=== PATIENT | male | born 1980 | race Caucasian/White ===

== ENCOUNTER 2023-01-13 11:07 | Outpatient (OUT) | payer OTHER, SELFPAY ==
[2023-01-13 12:05] LABS: Basophils Absolute Auto 0.1 10^3/uL (0.0-0.1); Basophils Percent Auto 0.7 % (0.2-2.0); Eosinophils Absolute Auto 0.4 10^3/uL (0.0-0.7); Eosinophils Percent Auto 4.6 % (0.9-7.0); Hematocrit 44.1 % (42.0-54.0); Hemoglobin 14.7 g/dL (14.0-18.0); Immature Granulocytes Abs Auto 0.02 10^3/uL (0.00-0.03); Immature Granulocytes Pct Auto 0.3 % (0.0-0.5); Lymphocytes Absolute Auto 1.7 10^3/uL (1.2-3.8); Lymphocytes Percent Auto 22.2 % (20.5-60.0); Mean Corpuscular HGB Conc 33.3 g/dL (29.9-35.2); Mean Corpuscular Hemoglobin 29.1 pg (25.9-34.0); Mean Corpuscular Volume 87.2 fL (80.0-94.0); Mean Platelet Volume 9.7 fL (9.5-13.5); Monocytes Absolute Auto 0.6 10^3/uL (0.3-0.8); Monocytes Percent Auto 8.4 % (1.7-12.0); Neutrophils Absolute Auto 4.8 10^3/uL (1.4-6.5); Neutrophils Percent Auto 63.8 % (43.0-75.0); Platelet Count 376 10^3/uL (150-450); Red Blood Count 5.06 10^6/uL (4.70-6.10); Red Cell Distribution Width 12.2 % (11.0-15.0); White Blood Count 7.6 10^3/uL (4.0-11.0)
[2023-01-13 12:11] LABS: Estimated Average Glucose 100 mg/dL; Glycohemoglobin A1C 5.1 % (4.5-6.2)
[2023-01-13 12:20] LABS: Alanine Aminotransferase 47 U/L (16-63); Albumin Globulin Ratio 1.2; Albumin Level 4.1 g/dL (3.4-5.0); Alkaline Phosphatase 68 U/L (46-116); Anion Gap 10.6; Aspartate Amino Transferase 25 U/L (15-37); BUN Creatinine Ratio 13.5; Bilirubin Direct 0.1 mg/dL (0.0-0.2); Bilirubin Total 0.5 mg/dL (0.2-1.0); Calcium 8.7 mg/dL (8.5-10.1); Carbon Dioxide 29.5 mmol/L (21.0-32.0); Chloride 102 mmol/L (98-107); Chol HDL Ratio 5.1; Cholesterol 225 mg/dL (<=200); Estimated GFR (African America >60 (>=60); Estimated GFR (Non-African Ame >60 (>=60); Globulin 3.5 g/dL; Glucose 92 mg/dL (74-106); HDL Cholesterol 44 mg/dL (40-60); Potassium 4.1 mmol/L (3.5-5.1); Sodium 138 mmol/L (136-145); Thyroid Stimulating Hormone 1.435 uIU/mL (0.358-3.740); Total Protein 7.6 g/dL (6.4-8.2); Triglycerides 111 mg/dL (<=150); VLDL CHOLESTEROL 22.2 mg/dL
[2023-01-13 12:55] LABS: Prostate Specific Antigen Scrn 0.61 ng/mL (<=4.00)
== END 2023-01-13 11:08 | disposition home or self-care (01) ==
LOC: LAB 11:09
PROVIDERS: PCP Family Medicine; Visit Provider Family Medicine
DX: Z00.00 Encounter for general adult medical examination without abnormal findings (principal)
CPT/HCPCS: 36415; 80048; 80061; 80076; 83036; 84443; 85025; G0103

== ENCOUNTER 2024-01-15 10:03 | Outpatient (OUT) | payer OTHER, SELFPAY ==
[2024-01-15 10:54] LABS: Basophils Absolute Auto 0.1 10^3/uL (0.0-0.1); Basophils Percent Auto 0.9 % (0.2-2.0); Eosinophils Absolute Auto 0.2 10^3/uL (0.0-0.7); Hematocrit 45.5 % (42.0-54.0); Immature Granulocytes Abs Auto 0.02 10^3/uL (0.00-0.03); Immature Granulocytes Pct Auto 0.3 % (0.0-0.5); Lymphocytes Absolute Auto 1.4 10^3/uL (1.2-3.8); Lymphocytes Percent Auto 20.6 % (20.5-60.0); Mean Corpuscular Hemoglobin 29.4 pg (25.9-34.0); Mean Platelet Volume 9.9 fL (9.5-13.5); Monocytes Absolute Auto 0.6 10^3/uL (0.3-0.8); Monocytes Percent Auto 8.8 % (1.7-12.0); Neutrophils Absolute Auto 4.4 10^3/uL (1.4-6.5); Neutrophils Percent Auto 66.4 % (43.0-75.0); Platelet Count 341 10^3/uL (150-450); Red Blood Count 5.11 10^6/uL (4.70-6.10); Red Cell Distribution Width 11.9 % (11.0-15.0); White Blood Count 6.6 10^3/uL (4.0-11.0)
[2024-01-15 11:17] LABS: Estimated Average Glucose 100 mg/dL; Glycohemoglobin A1C 5.1 % (4.5-6.2)
[2024-01-15 11:35] LABS: Alanine Aminotransferase 49 U/L (16-63); Albumin Globulin Ratio 1.1; Alkaline Phosphatase 75 U/L (46-116); Anion Gap 10.2; Aspartate Amino Transferase 29 U/L (15-37); Bilirubin Direct 0.1 mg/dL (0.0-0.2); Bilirubin Total 0.5 mg/dL (0.2-1.0); Calcium 9.3 mg/dL (8.5-10.1); Carbon Dioxide 30.8 mmol/L (21.0-32.0); Chloride 102 mmol/L (98-107); Chol HDL Ratio 4.9; Cholesterol 220 mg/dL (<=200); Estimated GFR (African America >60 (>=60); Estimated GFR (Non-African Ame >60 (>=60); Globulin 3.5 g/dL; Glucose 96 mg/dL (74-106); HDL Cholesterol 45 mg/dL (40-60); Sodium 139 mmol/L (136-145); Thyroid Stimulating Hormone 1.574 uIU/mL (0.358-3.740); Total Protein 7.5 g/dL (6.4-8.2); Triglycerides 91 mg/dL (<=150); VLDL CHOLESTEROL 18.2 mg/dL
[2024-01-15 11:36] LABS: Prostate Specific Antigen Scrn 0.58 ng/mL (<=4.00)
== END 2024-01-15 10:04 | disposition home or self-care (01) ==
LOC: LAB 10:04
PROVIDERS: PCP Family Medicine; Visit Provider Family Medicine
DX: Z00.00 Encounter for general adult medical examination without abnormal findings (principal)
CPT/HCPCS: 36415; 80048; 80061; 80076; 83036; 84443; 85025; G0103

== ENCOUNTER 2025-01-06 11:58 | Outpatient (OUT) | payer OTHER, SELFPAY ==
--- OUTSIDE RECORDS SUMMARY | 2025-01-06 12:17 | XMS_ITS | CCD ---
Author Organization [facility] Care Team Providers Care After School Caregiver Name Role Phone DR CRISTIAN MARTINES Attending Unavailable CONRAD, DR CRISTIAN Brar Consulting Unavailable DR CRISTIAN MARTINES Primary Care Unavailable CONRAD, DR CRISTIAN Brar Admitting Unavailable Cristian Martines MD Primary Care Provider [phone] Problems Active Problems Problem Classification Problem Date Documented Da te Episodic/Chronic Disorders of lipid metabolism (2 sources) Dyslipidemia; Translations: [Hyperlipidemia, unspecified] Onset: 01-15-2024 01-15-2024 Chronic Other skin disorders (2 sources) Skin tag; Translations: [Other hypertrophic disorders of the skin] Onset: 01-06-2025 01-06-2025 Episodic Other upper respiratory disease (2 sources) Allergic rhinitis due to pollen; Translations: [Allergic rhinitis due to pollen] Onset: 01-15-2024 01-15-2024 Chronic Past or Other Problems Problem Classification Problem Date Documented Da te Episodic/Chronic Other nutritional; endocrine; and metabolic disorders (2 sources) Overweight; Translations: [Overweight] Onset: 01-15-2024 01-15-2024 Episodic Results Test Name Value Interpretation Reference Range Facil ity CBC AUTO DIFFon 02-06-2022 BASO # 0.1 103/ul Normal 0.0-0.1 [facility] Comment on above: Performed By: #### C BC #### [facility] [address] [address] [address] Andressa Krishnan Basophils/100 WBC (Bld) 0.7 % Normal 0.2-2.0 [facility] Comment on above: Performed By: #### C BC #### [facility] [address] [address] [address] Andressa Krishnan EO # 0.3 103/ul Normal 0.0-0.7 [facility] Comment on above: Performed By: #### C BC #### [facility] [address] [place] [address] Dr. Andressa Krishnan Eosinophils/100 WBC (Bld) 4.0 % Normal 0.9-7.0 [facility] Comment on above: Performed By: #### C BC #### [facility] [address] [place] [address] Dr. Andressa Krishnan Erythrocyte distribution width (RBC) [Ratio] 11.9 % Normal 11.0-15.0 [facility] Comment on above: Performed By: #### C BC #### [facility] [address] [place] [address] Dr. Andressa Krishnan Hematocrit (Bld) [Volume fraction] 45.3 % Normal 42.0-54.0 [facility] Comment on above: Performed By: #### C BC #### [facility] [address] [place] [address] Dr. Andressa Krishnan Hemoglobin (Bld) [Mass/Vol] 14.7 g/dL Normal 14.0-18.0 [facility] Comment on above: Performed By: #### C BC #### [facility] [address] [place] [address] Dr. Andressa Krishnan IG # 0.03 10e3/ul Normal 0.00-0.03 [facility] Comment on above: Performed By: #### C BC #### [facility] [address] [place] [address] Dr. Andressa Krishnan IG % 0.4 % Normal 0.0-0.5 [facility] Comment on above: Performed By: #### C BC #### [facility] [address] [place] [address] Dr. Andressa Krishnan LYMPH # 1.6 103/ul Normal 1.2-3.8 [facility] Comment on above: Performed By: #### C BC #### [facility] [address] [place] [address] Dr. Andressa Krishnan Lymphocytes/100 WBC (Bld) 21.1 % Normal 20.5-60.0 [facility] Comment on above: Performed By: #### C BC #### [facility] [address] [place] [address] Dr. Andressa Krishnan MANUAL DIFF REQ NO Normal [facility] Comment on above: Performed By: #### C BC #### [facility] [address] [place] [address] Dr. Andressa Krishnan MCH (RBC) [Entitic mass] 29.1 pg Normal 25.9-34.0 [facility] Comment on above: Performed By: #### C BC #### [facility] [address] [place] [address] Dr. Andressa Krishnan MCHC (RBC) [Mass/Vol] 32.5 g/dL Normal 29.9-35.2 [facility] Comment on above: Performed By: #### C BC #### [facility] [address] [place] [address] Dr. Andressa Krishnan MCV (RBC) [Entitic vol] 89.7 fL Normal 80.0-94.0 [facility] Comment on above: Performed By: #### C BC #### [facility] [address] [place] [address] Dr. Andressa Krishnan MONO # 0.6 103/ul Normal 0.3-0.8 [facility] Comment on above: Performed By: #### C BC #### [facility] [address] [place] [address] Dr. Andressa Krishnan Monocytes/100 WBC (Bld) 8.1 % Normal 1.7-12.0 [facility] Comment on above: Performed By: #### C BC #### [facility] [address] [place] [address] Dr. Andressa Krishnan NEUT # 4.9 103/ul Normal 1.4-6.5 [facility] Comment on above: Performed By: #### C BC #### [facility] [address] [place] [address] Dr. Andressa Krishnan Neutrophils/100 WBC (Bld) 65.7 % Normal 43.0-75.0 [facility] Comment on above: Performed By: #### C BC #### [facility] [address] [address] [address] Andressa Krishnan Platelet mean volume (Bld) [Entitic vol] 9.8 fL Normal 9.5-13.5 [facility] Comment on above: Performed By: #### C BC #### [facility] [address] [address] [address] Andressa Krishnan PLT 365 103/ul Normal 150-450 [facility] Comment on above: Performed By: #### C BC #### [facility] [address] [address] [address] Andressa Krishnan RBC 5.05 106/ul Normal 4.70-6.10 [facility] Comment on above: Performed By: #### C BC #### [facility] [address] [place] [address] Dr. Andressa Krishnan WBC 7.5 103/ul Normal 4.0-11.0 [facility] Comment on above: Performed By: #### C BC #### [facility] [address] [place] [address] Dr. Andressa Krishnan GLYCOHEMOGLOBIN A1Con 2021 ADA RECOMMENDATION SEE BELOW Normal [facility] Comment on above: Result Comment: ADA RECOMMENDED LIMIT 4.0 - 6.0 ADA THERAPEUTIC TARGET < 7.0 ACTION SUGGESTED > 7.0 Performed By: #### A 1C #### [facility] [address] [place] [address] Dr. Andressa Krishnan Glucose [Mass/Vol] 108 mg/dL Normal [facility] Comment on above: Performed By: #### A 1C #### [facility] [address] [place] [address] Dr. Andressa Krishnan HbA1c (Bld) [Mass fraction] 5.4 % Normal 4.5-6.2 [facility] Comment on above: Performed By: #### A 1C #### [facility] [address] [place] [address] Dr. Andressa Krishnan LIPID PROFILEon 02-06-2022 CHOL-HDL RATIO NORM SEE BELOW Normal [facility] Comment on above: Result Comment: 3.3 - 4.4 LOW RISK 4.4 - 7.1 AVERAGE RISK 7.1 - 11.0 MODERATE RISK >11.0 HIGH RISK Performed By: #### T SH, LIVER, BMP, LIPID #### [facility] [address] [address] [address] Andressa Krishnan Cholesterol [Mass/Vol] 237 mg/dL Critically high <=200 [facility] Comment on above: Performed By: #### T SH, LIVER, BMP, LIPID #### [facility] [address] [address] [address] Andressa Krishnan Cholesterol in HDL [Mass/Vol] 44 mg/dL Normal 40-60 [facility] Comment on above: Performed By: #### T SH, LIVER, BMP, LIPID #### [facility] [address] [address] [address] Andressa Krishnan Cholesterol in LDL [Mass/Vol] 176.2 mg/dL Normal [facility] Comment on above: Performed By: #### T SH, LIVER, BMP, LIPID #### [facility] [address] [address] [address] Andressa Krishnan Cholesterol.total/Cho lesterol in HDL [Mass ratio] 5.4 {ratio} Normal [facility] Comment on above: Performed By: #### T SH, LIVER, BMP, LIPID #### [facility] [address] [place] [address] Dr. Andressa Krishnan HDL NORMAL > or = 60 mg/dl - LOW CARDIOVASCULAR RISK <40 mg/dl - HIGH CARDIOVASCULAR RISK Normal [facility] Comment on above: Performed By: #### T SH, LIVER, BMP, LIPID #### [facility] [address] [address] [address] Andressa Krishnan LDL CALC NORMAL SEE BELOW Normal [facility] Comment on above: Result Comment: <100 mg/dl OPTIMAL 100 - 129 mg/dl NEAR OR ABOVE OPTIMAL 130 - 159 mg/dl BORDERLINE HIGH 160 - 189 mg/dl HIGH >190 mg/dl VERY HIGH Performed By: #### T SH, LIVER, BMP, LIPID #### [facility] [address] [address] [address] Andressa Krishnan Triglyceride [Mass/Vol] 84 mg/dL Normal <=150 [facility] Comment on above: Performed By: #### T SH, LIVER, BMP, LIPID #### [facility] [address] [address] [address] Andressa Krishnan VLDL CALC 16.8 mg/dL Normal [facility] Comment on above: Performed By: #### T SH, LIVER, BMP, LIPID #### [facility] [address] [address] [address] Andressa Krishnan LIVER PROFILEon 02-06-2022 Albumin [Mass/Vol] 4.2 g/dL Normal 3.4-5.0 [facility] Comment on above: Performed By: #### T SH, LIVER, BMP, LIPID #### [facility] [address] [place] [address] Dr. Andressa Krishnan Albumin/Globulin [Mass ratio] 1.1 {ratio} Normal [facility] Comment on above: Performed By: #### T SH, LIVER, BMP, LIPID #### [facility] [address] [address] [address] Andressa Krishnan ALP [Catalytic activity/Vol] 73 U/L Normal 46-116 [facility] Comment on above: Performed By: #### T SH, LIVER, BMP, LIPID #### [facility] [address] [place] [address] Dr. Andressa Krishnan ALT [Catalytic activity/Vol] 34 U/L Normal 16-63 [facility] Comment on above: Performed By: #### T SH, LIVER, BMP, LIPID #### [facility] [address] [address] [address] Andressa Krishnan AST [Catalytic activity/Vol] 22 U/L Normal 15-37 [facility] Comment on above: Performed By: #### T SH, LIVER, BMP, LIPID #### [facility] [address] [place] [address] Dr. Andressa Krishnan BILI, CONJUGATED 0.1 mg/dL Normal 0.0-0.2 [facility] Comment on above: Performed By: #### T SH, LIVER, BMP, LIPID #### [facility] [address] [place] [address] Dr. Andressa Krishnan Bilirubin [Mass/Vol] 0.3 mg/dL Normal 0.2-1.0 [facility] Comment on above: Performed By: #### T SH, LIVER, BMP, LIPID #### [facility] [address] [place] [address] Dr. Andressa Krishnan Globulin (S) [Mass/Vol] 3.8 g/dL Normal [facility] Comment on above: Performed By: #### T SH, LIVER, BMP, LIPID #### [facility] [address] [place] [address] Dr. Andressa Krishnan Protein [Mass/Vol] 8.0 g/dL Normal 6.4-8.2 [facility] Comment on above: Performed By: #### T SH, LIVER, BMP, LIPID #### [facility] [address] [place] [address] Dr. Andressa Krishnan PROF CHEM 8 (BAS METB)on Anion gap [Moles/Vol] 11.1 mmol/L Normal [facility] Comment on above: Performed By: #### T SH, LIVER, BMP, LIPID #### [facility] [address] [place] [address] Dr. Andressa Krishnan Calcium [Mass/Vol] 9.5 mg/dL Normal 8.5-10.1 [facility] Comment on above: Performed By: #### T SH, LIVER, BMP, LIPID #### [facility] [address] [place] [address] Dr. Andressa Krishnan Chloride [Moles/Vol] 100 mmol/L Normal 98-107 [facility] Comment on above: Performed By: #### T SH, LIVER, BMP, LIPID #### [facility] [address] [place] [address] Dr. Andressa Krishnan CO2 [Moles/Vol] 30.0 mmol/L Normal 21.0-32.0 [facility] Comment on above: Performed By: #### T SH, LIVER, BMP, LIPID #### [facility] [address] [address] [address] Andressa Krishnan Creatinine [Mass/Vol] 0.97 mg/dL Normal 0.70-1.30 [facility] Comment on above: Performed By: #### T SH, LIVER, BMP, LIPID #### [facility] [address] [address] [address] Andressa Krishnan EGFR-AF [place]SH[place]ESE >60 Normal >=60 [facility] Comment on above: Performed By: #### T SH, LIVER, BMP, LIPID #### [facility] [address] [address] [address] Andressa Krishnan EGFR-NON AF [place]SHALLESE >60 Normal >=60 [facility] Comment on above: Performed By: #### T SH, LIVER, BMP, LIPID #### [facility] [address] [address] [address] Andressa Krishnan Glucose [Mass/Vol] 94 mg/dL Normal 74-106 [facility] Comment on above: Performed By: #### T SH, LIVER, BMP, LIPID #### [facility] [address] [address] [address] Andressa Krishnan Potassium [Moles/Vol] 4.1 mmol/L Normal 3.5-5.1 [facility] Comment on above: Performed By: #### T SH, LIVER, BMP, LIPID #### [facility] [address] [address] [address] Andressa Krishnan Sodium [Moles/Vol] 137 mmol/L Normal 136-145 [facility] Comment on above: Performed By: #### T SH, LIVER, BMP, LIPID #### [facility] [address] [address] [address] Andressa Krishnan Urea nitrogen [Mass/Vol] 15.0 mg/dL Normal 7.0-18.0 [facility] Comment on above: Performed By: #### T SH, LIVER, BMP, LIPID #### [facility] [address] [address] [address] Andressa Krishnan Urea nitrogen/Creatinine [Mass ratio] 15.5 mg/mg Normal [facility] Comment on above: Performed By: #### T SH, LIVER, BMP, LIPID #### [facility] [address] [place], [place] [address] Dr. Andressa Krishnan TSHon 02-06-2022 TSH 1.010 uIU/mL Normal 0.358-3.740 [facility] Comment on above: Performed By: #### T SH, LIVER, BMP, LIPID #### [facility] [address] [place], [place] [address] Dr. Andressa Krishnan Vital Signs Date Time Vital Sign Value Performing Clinician Faci lity 01-06-2025 10:57-0400 Body height 177.8 cm Cristian Martines MD Work Phone: [facility] 01-06-2025 10:57-0400 Body mass index (BMI) [Ratio] 27.26 kg/m2 Cristian Martines MD Work Phone: [facility] 01-06-2025 10:57-0400 Body temperature 97.5 [degF] Cirstian Martines MD Work Phone: [facility] 01-06-2025 10:57-0400 Body weight 86.18 kg Cristian Martines MD Work Phone: [facility] 01-06-2025 10:57-0400 Diastolic blood pressure 80 mm[Hg] Cristian Martines MD Work Phone: [facility] 01-06-2025 10:57-0400 Heart rate 99 /min Cristian Martines MD Work Phone: [facility] 01-06-2025 10:57-0400 Respiratory rate 18 /min Cristian Martines MD Work Phone: [facility] 01-06-2025 10:57-0400 SaO2% (BldA) [Mass fraction] 98 % Cristian Martines MD Work Phone: [facility] 01-06-2025 10:57-0400 Systolic blood pressure 142 mm[Hg] Cristian Martines MD Work Phone: [facility] Encounters Encounter Date Encounter Type Care Provider Facility Start: 01-06-2025 End: 01-06-2025 Bamboo flowsheet Cristian Martines MD Work Phone: [facility] Start: 01-06-2025 End: 01-06-2025 Bamboo flowsheet Cristian Martines MD Work Phone: [facility] Start: 01-06-2025 End: 01-06-2025 Patient encounter procedure Cristian Martines MD Work Phone: [facility] Work Phone: Start: 01-06-2025 End: 01-06-2025 Periodic preventive med est patient 40-64yrs Cristian Martines MD Work Phone: [facility] Comment on above: Annual physical exam (Primary Dx); Inflamed skin tag Start: 01-15-2024 Patient encounter procedure Cristian Martines MD Work Phone: [facility] Start: 02-07-2022 Encounter for genera l adult medical examination without abnormal findings DR CRISTIAN MARTINES [facility] Start: 02-06-2022 End: 02-07-[address] CRISTIAN MARTINES Facility:[facility] Start: 02-06-2022 End: 02-07-2022 Encounter for general adult medical examination without abnormal findings DR CRISTIAN MARTINES Facility:[facility] Plan of Treatment Date Care Activity Detail Author Start: 02-21-2025 Influenza vaccination Influenza Vacc ine (#1) [facility] Start: 01-06-2025 End: 01-06-2026 Basic metabolic 1998 panel - Serum or Plasma Basic metabolic panel Lab Routine Annual physical exam Expected: 01/06/2025 (Approximate), Expires: 01/06/2026 [facility] Comment on above: Expected: 01/06/2025 (Approximate), Expires: 01/06/2026 Start: 01-06-2025 End: 01-06-2026 CBC W Auto Differential panel - Blood CBC and differential Lab Routine Annual physical exam Expected: 01/06/2025 (Approximate), Expires: 01/06/2026 [facility] Comment on above: Expected: 01/06/2025 (Approximate), Expires: 01/06/2026 Start: 01-06-2025 End: 01-06-2026 Hemoglobin A1c/Hemoglobin.total in Blood Hemoglobin A1c Lab Routine Annual physical exam Expected: 01/06/2025 (Approximate), Expires: 01/06/2026 [facility] Work Phone: Comment on above: Expected: 01/06/2025 (Approximate), Expires: 01/06/2026 Start: 01-06-2025 End: 01-06-2026 Hepatic function 2000 panel - Serum or Plasma Hepatic function panel Lab Routine Annual physical exam Expected: 01/06/2025 (Approximate), Expires: 01/06/2026 [facility] Comment on above: Expected: 01/06/2025 (Approximate), Expires: 01/06/2026 Start: 01-06-2025 End: 01-06-2026 Lipid 1996 panel - Serum or Plasma Lipid panel Lab Routine Annual physical exam Expected: 01/06/2025 (Approximate), Expires: 01/06/2026 [facility] Comment on above: Expected: 01/06/2025 (Approximate), Expires: 01/06/2026 Start: 01-06-2025 End: 01-06-2026 Prostate specific Ag [Mass/volume] in Serum or Plasma PSA Lab Routine Annual physical exam Expected: 01/06/2025 (Approximate), Expires: 01/06/2026 [facility] Comment on above: Expected: 01/06/2025 (Approximate), Expires: 01/06/2026 Start: 01-06-2025 End: 01-06-2026 Thyrotropin [Units/volume] in Serum or Plasma TSH Lab Routine Annual physical exam Expected: 01/06/2025 (Approximate), Expires: 01/06/2026 [facility] Comment on above: Expected: 01/06/2025 (Approximate), Expires: 01/06/2026 Start: 01-06-2025 End: 01-06-2025 Patient encounter procedure 01/06/2025 10:45 AM EDT Office Visit [facility] [address] [place] [address] Cristian Martines MD [address] [address] Arrived [facility] Comment on above: Arrived Payers Date Payer Category Payer Private Health Insurance [employer] [id number] 1982 Unknown [id number] 1957 Unknown [id number] Social History Date Type Detail Facility Start: 01-15-2024 Tobacco smoking stat [facility] Never smoked tobacco [facility] Start: 01-15-2024 Tobacco use and exposure Smokeless t obacco non-user [facility] Start: 01-15-2024 End: 01-06-2025 History of Social function [facility] Start: 01-15-2024 End: 01-06-2025 Tobacco use panel [facility] Start: 1980 Sex assigned at Not on file [facility] History of Present illness Narrative 01-06-2025 Cristian Martines MD - 01/06/2025 11:31 AM Aislinn Martines MD - 01/06/2025 11:31 AM Aislinn Martines MD - 01/06/2025 10:45 AM EDT Note Date & Type Note Facility 01-06-2025 History of Presen t illness Narrative Associated Problem(s): Inflamed skin tag Irritated skin tags and return for cryo. Associated Problem(s): Annual physical exam Due for labs. Discussed proper diet and regular aerobic exercise. Need aerobic exercise 5-6 days a week for 30 minutes at a time. Smaller portions and limit total calories. Colonoscopy after age 45. Tetanus every 10 years. Advised not to smoke. Images from the original note were not included. Subjective Patient ID: Johann Mirza is a 44 y.o. male who presents for Annual Exam (wellness). Presents for annual PE. Patient feels well today and no concerns. Weight unchanged over the past year. Active around house and tries to exercise several days a week. Walks and does push-ups. Tries to watch diet and eat healthy. Increased fruits and vegetables. Smaller portions and limits snacking. Tries to limit total daily calories. Due for labs. C/o skin tags on side and groin for several months. Increased in size and irritated. Requests removal. Review of Systems Constitutional: Negative for fatigue. Respiratory: Negative for cough, shortness of breath and wheezing. Cardiovascular: Negative for chest pain and palpitations. Gastrointestinal: Negative for abdominal pain, diarrhea, nausea and vomiting. Genitourinary: Negative for dysuria. Objective Physical Exam Constitutional: General: He is not in acute distress. Appearance: Normal appearance. HENT: Head: Normocephalic. Right Ear: Tympanic membrane and ear canal normal. Left Ear: Tympanic membrane and ear canal normal. Eyes: Extraocular Movements: Extraocular movements intact. Pupils: Pupils are equal, round, and reactive to light. Cardiovascular: Rate and Rhythm: Normal rate and regular rhythm. Heart sounds: No murmur heard. No friction rub. No gallop. Pulmonary: Breath sounds: Normal breath sounds. No wheezing, rhonchi or rales. Abdominal: General: Bowel sounds are normal. There is no distension. Palpations: Abdomen is soft. Tenderness: There is no abdominal tenderness. There is no guarding or rebound. Musculoskeletal: General: Normal range of motion. Left lower leg: No edema. Neurological: General: No focal deficit present. Mental Status: He is alert. Cranial Nerves: No cranial nerve deficit. Deep Tendon Reflexes: Reflexes normal. Assessment/Plan Problem List Items Addressed This Visit Annual physical exam - Primary Due for labs. Discussed proper diet and regular aerobic exercise. Need aerobic exercise 5-6 days a week for 30 minutes at a time. Smaller portions and limit total calories. Colonoscopy after age 45. Tetanus every 10 years. Advised not to smoke. Relevant Orders Hemoglobin A1c Basic metabolic panel CBC and differential Hepatic function panel Lipid panel PSA TSH Inflamed skin tag Irritated skin tags and return for cryo. documented in this encounter [facility] Evaluation note Note Date & Type Note Facility Evaluation note Diagnosis Annual physical exam- Primary Routine general medical examination at a health care facility Annual physical exam- Primary Routine general medical examination at a health care facility Inflamed skin tag documented in this encounter [facility] Summary Purpose Family History No Family History Records Found Advance Directives No Advanced Directives Records Found Additional Source Comments (unrecognized sect ion and content) No Status Records Found INFORMATION SOURCE (unrecogn ized section and content) DATE CREATED AUTHOR 02/13/2022 [facility] Teams (unrecognized sec tion and content) After School Caregiver Relationship Specialty Start Date End Date Cristian Martines MD [address] [place] [address] PCP - General Family Medicine 11/21/23 After School Caregiver Relationship Specialty Start Date End Date Cristian Martines MD [address] [place] [phone] PCP - General Family Medicine 11/21/23 Reason for Visit (unrecogniz ed section and content) Reason Comments Annual Exam wellness FOR RECORDS PERTAINING TO PATIENTS WHO ARE OR HAVE BEEN ENROLLED IN A CHEMICAL DEPENDENCY/SUBSTANCEABUSE PROGRAM, SOME INFORMATION MAY BE OMITTED. This clinical summary was aggregated from multiple sources. Caution should be exercised in using it in the provision of clinical care. This summary normalizes information from multiple sources, and as a consequence, information in this document may materially change the coding, format and clinical context of patient data. In addition, data may be omitted in some cases. CLINICAL DECISIONS SHOULD BE BASED ON THE PRIMARY CLINICAL [employer] provides no warranty or guarantee of the accuracy or completeness of information in this [email or web address]
[2025-01-06 12:45] LABS: Hematocrit 43.3 % (42.0-54.0); Hemoglobin 14.4 g/dL (14.0-18.0); Immature Granulocytes Abs Auto 0.01 10^3/uL (0.00-0.03); Immature Granulocytes Pct Auto 0.1 % (0.0-0.5); Lymphocytes Absolute Auto 1.5 10^3/uL (1.2-3.8); Mean Corpuscular HGB Conc 33.3 g/dL (29.9-35.2); Mean Corpuscular Hemoglobin 29.1 pg (25.9-34.0); Mean Corpuscular Volume 87.5 fL (80.0-94.0); Platelet Count 365 10^3/uL (150-450); Red Blood Count 4.95 10^6/uL (4.70-6.10); White Blood Count 7.4 10^3/uL (4.0-11.0)
[2025-01-06 13:01] LABS: Alanine Aminotransferase 35 U/L (16-63); Albumin Globulin Ratio 1.1; Albumin Level 3.9 g/dL (3.4-5.0); Alkaline Phosphatase 76 U/L (46-116); Anion Gap 10.2; Aspartate Amino Transferase 25 U/L (15-37); Blood Urea Nitrogen 16.0 mg/dL (7.0-18.0); Calcium 9.0 mg/dL (8.5-10.1); Carbon Dioxide 30.9 mmol/L (21.0-32.0); Chloride 103 mmol/L (98-107); Cholesterol 193 mg/dL (<=200); Estimated GFR (African America >60 (>=60 mL/min/1.73m^2); Estimated GFR (Non-African Ame >60 (>=60 mL/min/1.73m^2); Globulin 3.4 g/dL; Glucose 89 mg/dL (74-106); HDL Cholesterol 45 mg/dL (40-60); Potassium 4.1 mmol/L (3.5-5.1); Sodium 140 mmol/L (136-145); Thyroid Stimulating Hormone 2.139 uIU/mL (0.358-3.740); Total Protein 7.3 g/dL (6.4-8.2); Triglycerides 66 mg/dL (<=150); VLDL CHOLESTEROL 13.2 mg/dL
== END 2025-01-06 11:59 | disposition home or self-care (01) ==
LOC: LAB 12:02
PROVIDERS: PCP Family Medicine; Visit Provider Family Medicine
DX: Z00.00 Encounter for general adult medical examination without abnormal findings (principal)
CPT/HCPCS: 36415; 80048; 80061; 80076; 83036; 84443; 85025; G0103